=== PATIENT | female | born 1970 | race Caucasian/White ===

== ENCOUNTER 2016-09-19 18:31 | Emergency (ER) | payer SELFPAY ==
[2016-09-19 20:15] LABS: UA SPECIFIC GRAVITY >=1.030 (1.005-1.035); microscopic required? YES; urine erythrocyte NEGATIVE (NEGATIVE)
[2016-09-19 20:38] VITALS: BP 145/89
== END 2016-09-19 20:38 | disposition home or self-care (01) ==
LOC: ED 18:31
PROVIDERS: Emergency Medicine
DX: M54.5 Low back pain (principal)

== ENCOUNTER 2017-04-06 16:38 | Emergency (ER) | payer MEDICAID ==
[~2017-04-06] VITALS: Ht 172.7 cm; Wt 126.2 kg
[2017-04-06 16:49] VITALS: Ht 172.7 cm; Wt 126.2 kg
[2017-04-06 18:45] VITALS: BP 148/74
== END 2017-04-06 18:45 | disposition home or self-care (01) ==
LOC: ED 16:38
DX: G44.209 Tension-type headache, unspecified, not intractable (principal)
CPT/HCPCS: J0780; J1885

== ENCOUNTER 2018-10-19 15:12 | Emergency (ER) | payer SELFPAY ==
[~2018-10-19] VITALS: Ht 165.1 cm; Wt 127.0 kg
[2018-10-19 15:24] VITALS: BP 172/95; Ht 165.1 cm; Wt 127.0 kg
== END 2018-10-19 18:37 | disposition home or self-care (01) ==
LOC: ED 15:12
DX: S39.012A Strain of muscle, fascia and tendon of lower back, initial encounter (principal); X58.XXXA Exposure to other specified factors, initial encounter; Y93.89 Activity, other specified; Y92.89 Other specified places as the place of occurrence of the external cause; Y99.8 Other external cause status
CPT/HCPCS: J1885